=== PATIENT | male | born 1980 | race Caucasian/White ===

== ENCOUNTER 2022-11-12 06:19 | Day surgery (SDC) | payer OTHER ==
[~2022-11-12] VITALS: Ht 177.8 cm; Wt 88.7 kg
[~2022-11-12 06:19] MED LIST: AMOCLA875 PO; DOXY100 PO; HYDACE5 PO; IBUP800 PO; SULTRIDS PO
[2022-11-12] MEDS ORDERED: CELE100 (06:54)
[2022-11-12] MEDS ORDERED: Prinivil10 MG PO (06:55)
[2022-11-12] MEDS ORDERED: SILDENAFIL CITR50 MG PO (06:56)
--- NOTE | 2022-11-12 07:32 | NUR ---
11/12/22 0732 Gail Poon TIME OUT COMPLETED AT 0722, SITE AND PATIENT VERIFIED WITH DR. OSORIO. BLOCK COMPLETED AT BEDSIDE AT [address] OSORIO.
--- NOTE | 2022-11-12 08:37 | NUR ---
11/12/22 0837 Karishma Gurrola PATIENT ON THE TMAX AND POSITIONED IN A BEACH CHAIR FASHION, THE HEADREST IS ATTACHED TO A FOAM HEADREST TO SECURED THE HEAD, LEFT ARM ON SECURED TO A ARM BOARD WITH GEL PAD, A SHORT BOLSTER IS PLACED ANABEL SECURE PATIENT ON TMAX, RIGHT ARM IS SECURED TO SPIDER, A FOAM WEDGE IS PLACED UNDER KNEES And calves, TWO SAFETY STRAPS PLACED ON UPPER THIGHS AND LOWER LEGS.
[2022-11-12 10:24] VITALS: BP 139/92
== END 2022-11-12 10:24 | disposition home or self-care (01) ==
LOC: ORSCSDS 06:19
PROVIDERS: Orthopaedic Surgery
PROC: 0LS34ZZ Reposition Right Upper Arm Tendon, Percutaneous Endoscopic Approach (ICD-10-PCS; principal; 2022-11-12 07:30)
PROC: 0RNJ4ZZ Release Right Shoulder Joint, Percutaneous Endoscopic Approach (ICD-10-PCS; principal; 2022-11-12 07:30)
DX: M75.111 Incomplete rotator cuff tear or rupture of right shoulder, not specified as traumatic (principal); S46.211A Strain of muscle, fascia and tendon of other parts of biceps, right arm, initial encounter; M71.9 Bursopathy, unspecified; I10 Essential (primary) hypertension; F17.210 Nicotine dependence, cigarettes, uncomplicated; J45.909 Unspecified asthma, uncomplicated; Z79.899 Other long term (current) drug therapy
CPT/HCPCS: C1713; J0171; J0690; J1100; J2250; J2405; J2704; J3010; J7120